=== PATIENT | female | born 1955 | race Hispanic/Latino ===

== ENCOUNTER 2023-05-07 08:00 | Outpatient (CLI) | payer MEDICARE | END 2023-05-07 08:01 | disposition home or self-care (01) | LOC: NM 08:00 | PROVIDERS: ATTEND Psychiatry & Neurology Neurology | DX: R25.1 Tremor, unspecified (principal); R29.818 Other symptoms and signs involving the nervous system | CPT/HCPCS: 78803; A9584 ×2 ==